=== PATIENT | male | born 1945 | race Caucasian/White ===

== ENCOUNTER → 2025-05-03 | Outpatient (REF) | payer MEDICARE ==
[2025-05-03 19:31] LABS: CALCIUM LEVEL 10.2 MG/DL (8.3-10.6); CARBON DIOXIDE LEVEL 27.0 MMOL/L (20-31); CHLORIDE LEVEL 102.0 MMOL/L (98-107); CREATININE FOR GFR 1.22 MG/DL (0.70-1.30); GLOMERULAR FILTRATION RATE 59.9 (>35); PHOSPHORUS LEVEL 2.9 MG/DL (2.4-5.1); POTASSIUM SERUM 4.6 MMOL/L (3.5-5.1); PTH INTACT 80.8 PG/ML (18.5-88.0); SODIUM LEVEL 140.0 MMOL/L (136-145)
== END ==
LOC: M SFHCLERA 11:59
PROVIDERS: ATTEND Internal Medicine
DX: E83.52 Hypercalcemia (principal)

== ENCOUNTER → 2025-05-07 | Outpatient (REF) | payer MEDICARE ==
[2025-05-10 11:22] LABS: PROTEIN CREAT 24H RATIO 354 mg/g creat (<100); T PROTEIN CREAT 24HR RATIO 0.354 (<0.100); UPEP 24H CREATININE 1.54 g/24 h (0.50-2.15)
[2025-05-11 08:27] LABS: Urine Albumin % 72 %; Urine Alpha-1-Globulin % 5 %; Urine Alpha-2-Globulin % 6 %; Urine Beta Globulin % 8 %; Urine Gamma Globulin % 10 %
== END ==
LOC: M SFHCLERA 14:02
PROVIDERS: ATTEND Internal Medicine
DX: E83.52 Hypercalcemia (principal)

== ENCOUNTER → 2025-06-14 | Outpatient (CLI) | payer MEDICARE ==
[~2025-06-14] MED LIST: AMLO1TAB25; ASCO250T20 PO; B-12100010 PO; BENA40TA84; COQ1200C3 PO; ELIQ5TAB; GLUCTAB61 PO; HYDR-3490; IRON65TA2 PO; METF500T13; NOXI1TAB PO; OMEG12004 PO; RA M500C PO; SIMV-253 PO; SIMV20TA22; TUMERIC 1000 MG PO; ZINC50CA4 PO
== END ==
LOC: M PLARAD 09:37
PROVIDERS: ATTEND Student in an Organized Health Care Education/Training Program
DX: D47.2 Monoclonal gammopathy (principal); D40.0 Neoplasm of uncertain behavior of prostate
CPT/HCPCS: 78816; A9552